=== PATIENT | male | born 1950 | race Hispanic/Latino ===

== ENCOUNTER 2019-09-15 07:38 | Observation (INO) | payer BC, MEDICARE, SELFPAY ==
[2019-09-15 08:06] LABS: #Basophils 0.1 thou/uL (0.0-0.2); #Eosinphils 0.4 thou/uL (0.0-0.7); #Lymphocytes 3.5 thou/uL (1.20-3.40); #Neutrophils 8.5 thou/uL (1.40-6.50); %Basophils 0.4 % (0.0-1.0); %Eosinophils 2.8 % (0.0-10.0); %Lymphocytes 26.4 % (21.0-51.0); %Monocytes 7.2 % (0.0-10.0); %Neutrophils 63.3 % (42.0-75.0); Hemoglobin 14.2 g/dL (14.0-18.0); Mean Corpuscular HGB CONC 32.7 g/dL (32.0-36.0); Mean Corpuscular Hemoglobin 29.8 pg (27.0-31.0); Mean Corpuscular Volume 90.9 fL (78.0-98.0); Mean Platelet Volume 6.6 fL (7.4-10.4); Platelet Count 386 thou/uL (130-400); RBC Distribution Width 13.1 % (11.5-14.5); Red Blood Cell (RBC) Count 4.77 mill/uL (4.70-6.10); White Blood Cell (WBC) Count 13.4 thou/uL (4.8-10.8)
--- NOTE | 2019-09-15 08:09 | RAD ---
XR Chest 1 View Portable HISTORY: Shortness of breath COMPARISON: None FINDINGS: The heart size is prominent. Changes of median sternotomy are seen. The lungs are well expa nded without focal areas of consolidation, aashish pulmonary edema, pneumothorax or pleural effusions. IMPRESSION: No radiographic evidence of acute cardiopulmonary process.
[2019-09-15 08:19] LABS: ALT (SGPT) 17 U/L (8-55); AST (SGOT) 13 U/L (5-34); Albumin 3.9 g/dL (3.4-4.8); Alkaline Phosphatase 75 U/L (40-110); Anion Gap 12 mmol/L (10-20); BUN (Urea Nitrogen) 15 mg/dL (8.4-25.7); Bilirubin, Total 0.4 mg/dL (0.2-1.2); CK (CPK) 37 U/L (30-200); Calc. Creatinine Clearance 0 mL/min (70-130); Calcium 8.9 mg/dL (7.8-10.44); Carbon Dioxide 27 mmol/L (23-31); Chloride 109 mmol/L (98-107); Estimated GFR-MDRD 89; Globulin 2.2 g/dL (2.4-3.5); Glucose 79 mg/dL (80-115); Lipase 38 U/L (8-78); Potassium 4.2 mmol/L (3.5-5.1); Protein, Total 6.1 g/dL (5.8-8.1); Sodium 144 mmol/L (136-145)
[2019-09-15 08:39] LABS: CKMB 0.9 ng/mL (0-6.6)
[2019-09-15] MEDS ORDERED: Nitroglycerin 2% Ointment 1 INCH/1 GM Packet ONE (09:24)
[2019-09-15] MEDS ORDERED: Aspirin Chewable 81 MG TAB ONE (09:24)
[2019-09-15] MEDS ORDERED: Nitroglycerin 0.4 MG TAB (25 Tab Bottle) PO PRN (11:18)
[2019-09-15] MEDS ORDERED: Acetaminophen 325 MG TAB PO PRN (11:21)
[2019-09-15] MEDS ORDERED: Insulin Regular 300 UNITS/3 ML VIAL SC PRN (11:24)
[2019-09-15] MEDS ORDERED: Dextrose 50% Abboject 50 ML SYRINGE SLOW IVP PRN (11:24)
[2019-09-15] MEDS ORDERED: Dextrose 5% in Water 1,000 ML IV PRN (11:24)
[2019-09-15 11:25] LABS: Troponin I 0.058 ng/mL (< 0.028)
[2019-09-15 12:11] VITALS: BMI 37.8
[2019-09-15 15:04] LABS: Troponin I 0.033 ng/mL (< 0.028)
[2019-09-15] MEDS: metFORMIN 500 MG TAB PO SCH (17:01)
[2019-09-15] MEDS: Carvedilol 6.25 MG TAB PO SCH (17:01)
[2019-09-15] MEDS ORDERED: Atorvastatin Calcium 10 MG TAB PO SCH (21:00)
[2019-09-16] MEDS: metFORMIN 500 MG TAB PO SCH (07:50)
[2019-09-16] MEDS: Carvedilol 6.25 MG TAB PO SCH (07:50)
--- NOTE | 2019-09-16 08:27 | HP ---
CHIEF COMPLAINT: Chest pain. HISTORY OF PRESENT ILLNESS: This patient is a 68-year-old male with a history of known coronary artery disease with coronary artery bypass grafting in 2013. The patient reported that 2 days ago, he and his had bought some sushi and he ate some with some wasabi that caused him some chest discomfort throughout the entire night. He tried some [place] and some omeprazole, neither of those seem to have any immediate effect and subsequently had spontaneous resolution about 5 o'clock in the morning and he was fine throughout the day Thursday. However , on the morning of admission, the patient stated that he woke up at his usual time around 5:00 to 5:30, drank some coffee and about 30 minutes, developed an uncomfortable feeling, had cold sweats, trouble breathing. This got worse. He felt dizzy. He felt like he might stop breathing and a little bit of chest discomfort and he had to call his on the phone, he was in bed because he was afraid to get up, she came to him and stated he was having a little trouble processing his words. She called the [facility] Nurse Hotline and was told to call an ambulance. He checked his blood sugar at that time and it was 143. He subsequently drank some juice anyway, but did not have significant improvement. He subsequently was noted to have some bradycardia with heart rate in the 40s. He was given a dose of atropine and said that actually made him feel a little bit better and currently , he is pain free and feels at his baseline. REVIEW OF SYSTEMS: All other systems reviewed, all pertinent positives and negatives as noted in the HPI. He has otherwise been eating and drinking well with no change in bowel or bladder habits. No significant peripheral edema. PAST MEDICAL HISTORY: Coronary artery disease, hypertension, hyperlipidemia, and diabetes mellitus. PAST SURGICAL HISTORY: Herniorrhaphy, knee surgery, coronary artery bypass in 2014. FAMILY HISTORY: Father had hypertension. Mother had diabetes and coronary artery disease. SOCIAL HISTORY: Some history of smoking, but quit remotely. No alcohol. No drugs. . He is full code and his would be his surrogate decision maker. ALLERGIES: NONE. HOME MEDICATIONS: 1. Onglyza 5 mg p.o. daily. 2. Pantoprazole 40 mg daily. 3. Lantus 32 units subcu b.i.d. 4. Coreg 6.25 mg b.i.d. 5. Metformin 1000 mg b.i.d. 6. Pravastatin 40 mg at bedtime. 7. Lisinopril 20 mg p.o. daily. 8. Aspirin 81 mg p.o. daily. PHYSICAL EXAMINATION: VITAL SIGNS: Temperature 97.6, pulse 70, respirations 20, O2 saturation 94% on room air, BP 132/79. GENERAL APPEARANCE: Age-appropriate male, obese, in no distress. HEENT: PERRL. No OP lesions. NECK: Supple and symmetric. No lymphadenopathy, JVD, or carotid bruits. HEART: Regular rate and rhythm. No murmurs, gallops, or rubs. LUNGS: Clear to auscultation bilaterally with good chest wall expansion and air exchange. ABDOMEN: Soft, nontender, and nondistended. Positive bowel sounds. No masses. No organomegaly. EXTREMITIES: No cyanosis, clubbing, or edema. PSYCH: Normal affect and behavior. NEURO: Cognition is intact. Cranial nerves intact. No focal deficits. LABORATORY DATA: White count 13.4, hemoglobin 14.2. Chemistries notable for glucose 79. Troponin 0.061. Albumin 3.9. BNP 21.4. Chest x-ray shows no acute cardiopulmonary processes. EKG showed sinus rhythm without significant ST or T wave changes. IMPRESSION AND PLAN: 1. Chest pain in a patient with history of known coronary artery disease and sounded atypical, but the patient's reports these symptoms are very similar to what he had prior to the initial MD in 2013; therefore, the patient will be placed on observation. Continue telemetry monitoring and serial troponins. Anticipate a nuclear medicine stress testing tomorrow if trops are negative. 2. Possible bradycardia. We will continue to monitor on tele. He did feel better after getting a dose of atropine in the ambulance en route for some relative bradycardia. Certainly possible he could have a bradycardic event causing these types of symptoms. He is on a relatively low dose of carvedilol, but that could be decreased and he demonstrates significant bradycardia. 3. Diabetes mellitus. Continue with sliding scale and metformin. We will add back his long-acting insulin once he is able to get through the stress test tomorrow. 4. Hypertension. Continue lisinopril. 5. Hyperlipidemia. Continue pravastatin. Job ID: [id number] MTDD
[2019-09-16] MEDS ORDERED: Aspirin 81 mg Enteric Coated Tablet PO SCH (09:00)
[2019-09-16] MEDS ORDERED: Lisinopril 20 MG TAB PO SCH (09:00)
--- NOTE | 2019-09-16 12:29 | NM ---
Radionucleotide stress and rest myocardial perfusion scan with SPECT imaging Left ventricular wall motion evaluation and ejection fraction. History: Chest pain. Comparison: None. Findings: Adenosine protocol. CT attenuation correction not available. Heterogeneous uptake of radiot racer throughout the left ventricular myocardium. Large area of moderately diminished radiotracer uptake involves the entirety of the lateral wall on the stress images. Uptake on the rest images exte nds to the periphery of this defect. The defect remains within the central portion. QGS analysis of gated SPECT images shows diminished thickening and motion of the lateral wall. Ejecti on fraction calculated at 62%. IMPRESSION: Abnormal exam. Small area of reversibility within a large fixed defect of the lateral wal l suggests an area of scar with nithya-infarct ischemia. Preserved LVEF.
[2019-09-16] MEDS ORDERED: Carvedilol 3.125 MG TAB PO SCH ×2 (13:15→17:00)
[2019-09-16] MEDS ORDERED: Nitroglycerin 2% Ointment 1 INCH/1 GM Packet TOP SCH (14:00)
[2019-09-16 16:00] VITALS: BP 171/81; TEMP 97.9
--- NOTE | 2019-09-17 00:57 | CON ---
DATE OF CONSULTATION: PRIMARY CARE DOCTOR: Unknown. PRIMARY CARDIOLOGISTS: 1. In [place] is Dr. Gonzalez. 2. Dr. Oliver. REASON FOR CARDIOLOGY CONSULT: Abnormal stress test result. HISTORY OF PRESENT ILLNESS: Mr. Macario is a very present 68 years old male with a significant history of coronary artery disease status post CABG x2 in 2016, PAD status post AFRO and PTCA in left SFA in 2018, hypertension, and insulin-dependent diabetes. The patient was relatively doing well. The patient followed up with Dr. Oliver on September 01, 2019. The patient denied any cardiac complaints during the office visit, according to Dr. Oliver's office note. Yesterday around 5:30 to 6 o'clock a.m., the patient started having a cold sweat with dizziness, shortness of breath for 30 minutes. Due to those reasons, the patient's called EMS. While the patient was transferred to emergency department, the patient was found to have heart rate going down to 40 and blood pressures more than 170s and 180 systolic payne. After the nitroglycerin was placed in his chest, his blood pressure was coming down to like 140s, according to the patient and the family member. Since that episode, the patient has not had any chest pain, heaviness, tightness, shortness of breath, dizziness, lightheadedness, palpitation, fluttering, or any other cardiac complaints. However, when the patient had a stress test today, the patient was found to have a small area of reversibility with a large fixed defect of the left lateral wall suggesting an area of scar with nithya-infarct ischemia and ejection fraction of 62%. Due to this reason, cardiology consult was ordered. Again, patient is asymptomatic at this moment. The patient underwent cardiac cath in January 2017 with diastolic dysfunction, normal ejection fraction, 10% of stenosis in the left main, 100% stenosis in LAD and 60% in RCA and 99% of stenosis in the circumflex. The patient underwent CABG x2 in January 2017, with REDMAN to LAD and SVG to OM. Also, patient had AFRO with PTCA with ENVIRONMENTAL ENGINEERING AIDE atherectomy in left SFA in July 2018. The patient had echocardiogram done in February 2019, with EF 55% to 60%, mild LVH, moderately dilated left atrium and mild diastolic dysfunction. The patient has had arterial duplex done in February 2019, with evidence of at least a moderate stenosis in the left mid posterior tibial arteries. PAST MEDICAL HISTORY: 1. Coronary artery disease. 2. Hypertension. 3. Hyperlipidemia. 4. Insulin-dependent type 2 diabetes. 5. PAD. 6. GERD. 7. Obesity. 8. The patient had a history of sepsis in 2018, treated with antibiotic. 9. TIA x1 in the . PAST SURGICAL HISTORY: CABG x2 in 2017, cholecystectomy, hernia repair, herniorrhaphy, and left knee surgery. FAMILY HISTORY: The patient's father had a history of hypertension and cancer. The patient's mother had a history of diabetes and due to the complication from congestive heart failure. The patient's sister has a history of CABG. SOCIAL HISTORY: The patient is . The patient has 6 children who live well. The patient is retired. He is an ex-smoker. He quit in . He used to smoke 1 pack a day. Occasional, once a 3-month ETOH use. He drinks at least 5 cups of coffee in the morning. He does not do exercise . ALLERGIES: NO KNOWN DRUG ALLERGIES. MEDICATIONS: 1. Aspirin 81 mg once a day. 2. Metformin 1000 mg twice a day. 3. Lisinopril 20 mg once a day. 4. Protonix 40 mg once a day. 5. Carvedilol 6.25 mg twice a day. 6. Onglyza 5 mg once a day. 7. Pravastatin 40 mg at night. 8. Insulin Lantus 32 units twice a day. REVIEW OF SYSTEMS: 12-point review of systems negative unless otherwise mentioned in the HPI. PHYSICAL EXAMINATION: VITAL SIGNS: Blood pressure 171/81, temperature 97.6, pulse is 60, respiratory rate 16, O2 saturation 95% on room air. GENERAL: Patient is alert and oriented x4, not in acute distress. HEAD: Normocephalic, atraumatic. EYES: Extraocular muscle movement intact. ENT: Mouth, oral and nasal mucosa moist without lesion. NECK: Supple. Normal range of motion. No JVD. RESPIRATORY: Clear to auscultate bilaterally, but diminished at the bases. No wheezing, rales, or rhonchi noted. CARDIOVASCULAR: Regular rate and rhythm. Normal S1 and S2. There is no S3 or S4. No significant murmur, hives, or thrill noted. VASCULAR: 2+ pulses in bilateral upper extremities, diminished at the lower extremities, but pulses are palpable. No coolness to touch the lower extremities. Carotid pulses are present without bruit or thrill. ABDOMEN: Soft, nontender. No mass to palpitate. Bowel sounds are present, but distended. SKIN: Warm and dry. No lesion, rash, or erythema noted. MUSCULOSKELETAL: The patient able to move all extremities. The patient denied claudication. NEUROLOGIC: The patient is alert and oriented x4. Nonfocal. PSYCHIATRIC: The patient's mood is appropriate. IMAGING STUDIES: Chest x-ray showed no acute cardiopulmonary process. LABORATORY DATA: WBC 13.4, hemoglobin 14.2, hematocrit 43.4, platelets 386. D-dimer 0.33. Sodium 144, potassium 4.2, BUN 15, creatinine 0.85, glucose 79. AST 30, ALT 70. CK-MB 0.9. Troponin 0.061, 0.058, 0.033. BNP is at 21.46. The telemetry record has been showing sinus rhythm, around 60 to 70s. ASSESSMENT AND PLAN: 1. Abnormal stress test. All the patient's stress test showed today small area of reversibility with a large fixed defect of the lateral wall, suggest an area of scar with nithya-infarct ischemia. The patient is asymptomatic. The patient had a history of coronary artery bypass graft x2 in 2017 with left internal mammary artery and saphenous vein graft to obtuse marginal. The patient's family member told that they had contacted Dr. Oliver who suggested the patient not to have any further cardiac workup during this hospitalization, but the patient can have any procedure by Dr. Oliver as an outpatient. Again, patient is symptomatic. The patient wished to go home at this moment. Per Dr. Gonzalez, the patient can follow up with Dr. Oliver as outpatient as long as the patient is stable. 2. Hypertension. The patient's blood pressure is still elevated. We would like to adjust the patient's blood pressure medication and hopefully the patient can go home today. 3. Insulin-dependent diabetes, which is managed by primary care doctor. 4. Hyperlipidemia. He is on statin. 5. Peripheral artery disease, which is managed by Dr. Oliver. 6. Coronary artery disease status post coronary artery disease x2 in 2017. He is on carvedilol, lisinopril, aspirin, and pravastatin at home. 7. History of transient ischemic attack in . 8. Obesity. Strongly recommend the patient to start regular exercise. Thank you very much for Cardiology Service to participate in the care of this patient. We will follow along with the patient's care team and make further recommendations as appropriate, but most likely the patient is going to be discharged today. Job ID: [id number]
--- NOTE | 2019-09-17 15:33 | EKG ---
Test Reason : Blood Pressure : / mmHG Vent. Rate : 062 BPM Atrial Rate : 062 BPM P-R Int : 132 ms QRS Dur : 104 ms QT Int : 428 ms P-R-T Axes : 000 -24 150 degrees QTc Int : 434 ms Sinus rhythm with Premature atrial complexes Incomplete right bundle branch block Inferior infarct , age undetermined T wave abnormality, consider lateral ischemia Abnormal ECG Confirmed by CARLOS SETHI, SHERRY ([id number]), web ui software engineer DAWSON JOHNSTON ([id number]) on 09/17/2019 3:32:57 PM Referred By: Confirmed By:SHERRY GONZALEZ MD
--- NOTE | 2019-09-19 17:18 | DIS ---
DATE OF ADMISSION: 09/15/2019 DATE OF DISCHARGE: 09/16/2019 DISCHARGE DISPOSITION: To home. PRIMARY DISCHARGE DIAGNOSES: 1. Chest pain. 2. History of coronary artery disease with prior coronary artery bypass graft. 3. Hypertension. 4. Dyslipidemia. 5. Diabetes mellitus type 2. PROCEDURES DONE DURING HOSPITALIZATION: The patient has had chest x-ray done, which showed no acute cardiopulmonary process. Nuclear stress test done showed small area of reversibility within a large fixed defect of the lateral wall suggesting an area of scar with nithya-infarct ischemia. Ejection fraction of 62%. H and H 14 and 43, platelet count 386, MCV 90, troponin I 0.06, CK-MB 0.9. BNP 21. DISCHARGE MEDICATIONS: 1. Aspirin 81 mg p.o. daily. 2. Coreg 3.125 mg p.o. twice daily. 3. Onglyza 5 mg daily. 4. Pravastatin 40 mg p.o. nightly. 5. Protonix 40 mg p.o. daily. 6. Metformin 1000 mg twice daily. 7. Lisinopril 20 mg daily. 8. Lantus 32 units subcu twice daily. 9. Aspirin 81 mg daily. ALLERGIES: NO KNOWN DRUG ALLERGIES. DISCHARGE PLAN: The patient to follow up with Dr. Oliver in 3 days and primary care physician in 1 week. BRIEF COURSE DURING HOSPITALIZATION: The patient initially came in with complaints of chest pain. Please see detailed H and P note of presenting complaints. He was placed under observation on telemetry due to risk factors to rule out acute coronary syndrome. Three sets of troponin were indeterminate. He has had a nuclear stress test done, which showed nithya-infarct ischemia with a large scar on the lateral wall. The patient's wanted me to call Dr. Oliver and I did give him a full update of the patient's symptoms and the findings. Dr. Gonzalez was consulted here as well for Cardiology. Per their recommendation, the patient is being discharged home to follow up with Dr. Oliver in 3 days. He is currently chest pain free, ambulating, and eating well. Please note, I have seen and examined the patient on the day of discharge. Job ID: [id number]
--- NOTE | 2019-09-20 09:42 | STRESS ---
Acquisition Time: 2019-09-16 10:44:59 Total Exercise Time: 00:04:00 Test Indications: CHEST PAIN Medications: Protocol: ADENOSINE Max HR: 077 BPM 51% of Pred: 150 BPM Max BP: 164/080 mmHG Max Work Load: 1.0 METS RESTING ECG: SINUS BRADYCARDIA AT 57 BPM SYMPTOMS: CHEST PAIN/THROAT TIGHTNESS APPROPRIATE BP RESPONSE FOR ADENOSINE ECTOPY: RARE PACS ECG STRESS: NO SIGNIFICANT CHANGES INTERPRETATION: INDETERMINATE/AWAIT NUCLEAR IMAGES FOR DEFINITIVE DIAGNOSIS Confirmed by MARINE ADAMSON ([id number]), news videotape editor BASIA SANDY ([id number]) on 09/20/2019 9:42:20 AM Referred By: Confirmed By:MARINE ADAMSON
== END 2019-09-16 19:33 | disposition home or self-care (01) ==
LOC: ERS 07:38 → 2SW 10:29
PROVIDERS: ADMIT Internal Medicine; ATTEND Internal Medicine
DX: R07.89 Other chest pain (principal); I25.10 Atherosclerotic heart disease of native coronary artery without angina pectoris; I10 Essential (primary) hypertension; E78.5 Hyperlipidemia, unspecified; E11.9 Type 2 diabetes mellitus without complications; R94.39 Abnormal result of other cardiovascular function study; I73.9 Peripheral vascular disease, unspecified; E66.9 Obesity, unspecified; Z68.37 Body mass index [BMI] 37.0-37.9, adult; Z86.73 Personal history of transient ischemic attack (TIA), and cerebral infarction without residual deficits; Z87.891 Personal history of nicotine dependence; Z79.4 Long term (current) use of insulin; Z79.82 Long term (current) use of aspirin; Z79.899 Other long term (current) drug therapy; Z95.1 Presence of aortocoronary bypass graft
CPT/HCPCS: 71045; 78452; 80053; 82550; 82553; 82962 ×2; 83690; 83880; 84484 ×2; 85025; 85379; 93005; 93017; 94760; 99285; A9500; G0378 ×3; 36415; 36416; J0153; J1815

== ENCOUNTER 2023-05-06 10:03 | Outpatient (CLI) | payer OTHER | END 2023-05-06 10:04 | disposition home or self-care (01) | LOC: SCSMRI 10:03 | PROVIDERS: ATTEND Neurological Surgery | DX: M47.26 Other spondylosis with radiculopathy, lumbar region (principal); M48.061 Spinal stenosis, lumbar region without neurogenic claudication; M47.815 Spondylosis without myelopathy or radiculopathy, thoracolumbar region; M47.817 Spondylosis without myelopathy or radiculopathy, lumbosacral region | CPT/HCPCS: 72148 ==